=== PATIENT | female | born 1985 | race Two or more races ===

== ENCOUNTER 2017-06-12 22:55 | Emergency (ER) | payer BC ==
[~2017-06-12] VITALS: Ht 157.5 cm; Wt 49.4 kg
[2017-06-12 23:20] VITALS: BP 127/59
--- NOTE | 2017-06-12 23:44 | PHYS DOC ---
Past Medical History Past Medical History: Asthma, Depression, Migraines Additional Past Medical Histor: Seasonal Allergies, Raynaud's, Anorexic Past Surgical History: Alcohol Use: Occasionally Drug Use: None Adult General Chief Complaint Chief Complaint: LOWEREXTREMITY INJURY [facility] HPI Patient is a 31 year old female presents to the emergency department stating that she went walk out of her shed which has a 2 foot drop in which she stepped down and rolled her left ankle. She is having pain and discomfort on the left lateral ankle that she has some swelling and redness noted as well. Patient states that she did not take anything for pain or discomfort today she continued to work on her activities walking on the left ankle. She states that she is having increased pain with swelling. Denies any numbness or tenderness in the ankle area she has full range of motion of the ankle. Review of Systems Review of Systems Constitutional: Denies fever or chills [] Eyes: Denies change in visual acuity, redness, or eye pain [] HENT: Denies nasal congestion or sore throat [] Respiratory: Denies cough or shortness of breath [] Cardiovascular: No additional information not addressed in HPI [] GI: Denies abdominal pain, nausea, vomiting, bloody stools or diarrhea [] : Denies dysuria or hematuria [] Musculoskeletal: Denies back pain. Complaint of left ankle pain Integument: Denies rash or skin lesions [] Neurologic: Denies headache, focal weakness or sensory changes [] Endocrine: Denies polyuria or polydipsia [] Current Medications Current Medications Current Medications Medications (Trade) Dose Ordered Sig/Sagar Start Time Stop Time Status Last Admin Dose Admin Acetaminophen/ Hydrocodone Bitart (Lortab 5/325) 1 tab 1X ONCE 06/12/17 23:45 06/12/17 23:46 06/12/17 23:20 1 TAB Allergies Allergies Allergies Coded Allergies Type Severity Reaction Last Updated Verified No Known Drug Allergies 10/03/15 No Physical Exam Physical Exam Constitutional: Well developed, well nourished, no acute distress, non-toxic appearance. [] HENT: Normocephalic, atraumatic, bilateral external ears normal, oropharynx moist, no oral exudates, nose normal. [] Eyes: PERRLA, EOMI, conjunctiva normal, no discharge. [] Neck: Normal range of motion, no tenderness, supple, no stridor. [] Cardiovascular:Heart rate regular rhythm Lungs & Thorax: No respiratory distress noted Skin: Warm, dry, no erythema, no rash. [] Back: No tenderness Extremities: Left lateral ankle tenderness, no cyanosis, no clubbing, ROM intact , no edema. Redness noted on the lateral ankle. No ecchymosis noted. She does have swelling noted. Peripheral pulses 2+ cap refill brisk less than 2 seconds. Good sensation to the toes noted. Neurologic: Alert and oriented X 3, normal motor function, normal sensory function, no focal deficits noted. [] Psychologic: Affect normal, judgement normal, mood normal. [] EKG EKG [] Radiology/Procedures Radiology/Procedures [] Course & Med Decision Making Course & Med Decision Making Pertinent Labs and Imaging studies reviewed. (See chart for details) X-rays negative per . Patient will be placed in Melvin wrap and an Air- Stirrup splint with recommendations for ice packs on 20 minutes off 20 minutes several times a day elevation as much as possible. Wear the Melvin wrap for the next 5-7 days in the Air-Stirrup splint for the next 7-10 days. She'll be provided with orthopedic name and number to follow up with. Signs and symptoms to return back to emergency department as been provided. All questions and concerns have been answered at the patient's bedside. [] Dragon Disclaimer Dragon Disclaimer This electronic medical record was generated, in whole or in part, using a voice recognition dictation system. Departure Departure Impression: Primary Impression: Left ankle sprain Disposition: 01 HOME, SELF-CARE Condition: STABLE Referrals: NO PCP (PCP) MILA BENSON II, MD Patient Instructions: Ankle Sprain, [id number] Additional Instructions: X-rays were negative for any bony abnormalities. Activity as tolerated. Wear the Melvin wrap for the next 5-7 days. Wear the Air-Stirrup splint for the next 7-10 days. Ice packs on 20 minutes off 20 minutes several times a day. Elevation as much as possible. Follow-up with orthopedic within the next week. Return back to emergency prior signs symptoms of become worse. Problem Qualifiers Primary Impression: Left ankle sprain Encounter type: initial encounter Involved ligament of ankle: unspecified ligament Qualified Codes: S93.402A - Sprain of unspecified ligament of left ankle, initial encounter ION [facility]ILL [employer] Jun 12, 2017 23:44
[2017-06-12] MEDS ORDERED: HYDROcodone/APAP 5/325MG 1 TAB TABLET PO ONE (23:45)
--- NOTE | 2017-06-13 08:07 | RAD ---
Exam: Left ankle radiograph 06/12/2017 at 2321 hours Indication: Left ankle pain and injury Comparison: None available Technique: 3 views of the left ankle are provided. Findings: There is no acute fracture or dislocation. Ankle mortise is congruent. Tibial plafond and talar dome are intact. Well corticated osseous body is identified along the posterior aspect of the talus, likely congenital or related to prior trauma. No joint space narrowing. No soft tissue swelling. No osseous erosion or soft tissue gas. Bone mineralization is within normal limits. Impression: No acute fracture or dislocation.
== END 2017-06-12 23:54 | disposition home or self-care (01) ==
LOC: ER 22:55
DX: S93.402A Sprain of unspecified ligament of left ankle, initial encounter (principal); J45.909 Unspecified asthma, uncomplicated; I73.00 Raynaud's syndrome without gangrene; F32.9 Major depressive disorder, single episode, unspecified; G43.909 Migraine, unspecified, not intractable, without status migrainosus; X58.XXXA Exposure to other specified factors, initial encounter; Y93.89 Activity, other specified; Y92.89 Other specified places as the place of occurrence of the external cause; Y99.8 Other external cause status
CPT/HCPCS: 29515; 73610; 99284-25